=== PATIENT | male | born 1970 | race Caucasian/White ===

== ENCOUNTER 2022-06-26 15:55 | Emergency (ER) | payer OTHER ==
[~2022-06-26] VITALS: Ht 172.7 cm; Wt 70.3 kg
[~2022-06-26 15:55] MED LIST: ASA325 MG PO; CENTRUM TABLET1 TAB PO
== END 2022-06-26 22:55 | disposition home or self-care (01) ==
LOC: ER 15:55
DX: H00.014 Hordeolum externum left upper eyelid (principal)

== ENCOUNTER 2025-01-23 05:59 | Emergency (ER) | payer OTHER ==
[~2025-01-23] VITALS: Ht 172.7 cm; Wt 70.3 kg
[2025-01-23] MEDS ORDERED: CEFTRIAXONE SODIUM 2,000 MG VIAL IV STA (09:02)
[2025-01-23 09:54] LABS: BASO % 0.3 % (0.1-1.2); EOS # 0.17 (0.04-0.54); EOS % 1.8 % (0.7-7.0); LYMPH # 2.88 (1.18-3.74); LYMPH % 30.6 % (19.3-53.1); MEAN PLATELET VOLUME 10.30 fl (9.4-12.4); MONO # 0.96 (0.24-0.82); MONO % 10.2 % (4.7-12.5); NEUT # 5.36 (1.56-6.13); NEUT % 56.9 % (34.0-71.1); RED CELL DISTRIBUTION WIDTH 13.5 % (11.6-14.4)
[2025-01-23 11:28] LABS: ALT/SGPT 26.0 U/L (12-78); AST/SGOT 23.0 U/L (15-37); BILIRUBIN TOTAL 0.57 mg/dL (0.3-1.2); BUN CREA RATIO 19.0 (7.0-25.0); CREATININE SERUM 0.83 mg/dL (0.70-1.30); GFR 96.55; GLOBULINA 4.4 G/DL (2.4-3.5); GLUCOSE FASTING 93.0 mg/dL (65-100); OSMOLALITY SERUM 282.0 MOSM/KG (275-295)
== END 2025-01-23 11:56 | disposition home or self-care (01) ==
LOC: ER 05:59
PROVIDERS: General Practice
DX: L03.011 Cellulitis of right finger (principal)